=== PATIENT | male | born 1940 | race Caucasian/White ===

== ENCOUNTER 2017-06-08 19:59 | Inpatient (IN) | payer OTHER, MEDICARE ==
[~2017-06-08] VITALS: Ht 182.9 cm; Wt 80.6 kg
[~2017-06-08 19:59] MED LIST: APRESOLINE50 MG PO; CRESTOR40 MG PO; FISH OIL 1,2001 EAC4 PO; Lopressor PO; Nitrostat,NitroQuick SL; Norvasc PO; Oscal 500 w/Vitamin PO; Protonix PO; Theragran PO; Tylenol Regular Stre PO; ZESTRIL40 MG PO
[2017-06-08 20:18] LABS: BASOPHIL (%) 0.9 % (0-1); BASOPHIL COUNT 0.1 K/uL (0-0.1); EOSINOPHIL COUNT 0.1 K/uL (0-0.3); HEMATOCRIT 50.3 % (38.0-50.0); HEMOGLOBIN 17.1 G/DL (12.5-16.6); IMMATURE GRANULOCYTE (%) 0.3 % (0.0-0.7); LYMPHOCYTE (%) 24.3 % (15-42); LYMPHOCYTE COUNT 1.7 K/uL (1.0-2.8); MCH 31.7 PG (29.0-34.0); MCV 93.1 FL (86-99); MONOCYTE (%) 9.1 % (3-12); MONOCYTE COUNT 0.6 K/uL (0-0.8); NEUTROPHIL (%) 64.4 % (45-76); NEUTROPHIL COUNT 4.4 K/uL (1.8-6.4); PLATELET COUNT 212 K/uL (156-360); RBC DIS.WIDTH-CV 14.3 % (11.8-14.6); RBC DIS.WIDTH-SD 49.3 % (39-53); WHITE BLOOD COUNT 6.8 K/uL (4.1-10.2)
[2017-06-08 20:26] LABS: AMYLASE 62 IU/L (1-118); CHLORIDE 103 mEq/L (99-109); POTASSIUM 3.8 mEq/L (3.7-5.4); PTT 27.1 SEC (25-37); SODIUM 140 mEq/L (136-147)
[2017-06-08 20:28] LABS: GLUCOSE 117 mg/dL (70-99)
[2017-06-08 20:31] LABS: SERUM ETHYL ALCOHOL < 10 mg/dL
[2017-06-08 20:32] LABS: CREATININE 1.1 mg/dL (0.6-1.3); GFR ESTIMATE (CALCULATED) > 59 mL/min/ (58.99-99999)
[2017-06-08 20:33] LABS: UREA NITROGEN (BUN) 10 mg/dL (9-23)
[2017-06-08 20:35] LABS: LIPASE 13 U/L (1.0-51.0)
[2017-06-08 20:41] LABS: TROP-I INTERPRETATION INDETERMINATE; TROPONIN-I 0.48 ng/mL (0.0-0.30)
[2017-06-08 21:44] VITALS: BP 129/74
[2017-06-08 21:45] VITALS: BP 129/74
[2017-06-08 22:00] VITALS: BP 120/69
[2017-06-08 23:00] VITALS: BP 141/83
[2017-06-09] VITALS (20 sets, daily range): BP systolic 113–149; BP diastolic 70–87
[2017-06-09 01:00] LABS: TROP-I INTERPRETATION POSITIVE
[2017-06-09 01:18] LABS: TROPONIN-I 69.42 ng/mL (0.0-0.30)
[2017-06-09 04:24] LABS: BASOPHIL (%) 0.5 % (0-1); EOSINOPHIL (%) 1.2 % (0-5); EOSINOPHIL COUNT 0.1 K/uL (0-0.3); HEMATOCRIT 43.3 % (38.0-50.0); IMMATURE GRANULOCYTE (%) 0.3 % (0.0-0.7); LYMPHOCYTE (%) 23.7 % (15-42); LYMPHOCYTE COUNT 1.4 K/uL (1.0-2.8); MCHC 34.2 G/DL (30.0-36.0); MCV 93.5 FL (86-99); MONOCYTE (%) 10.3 % (3-12); MONOCYTE COUNT 0.6 K/uL (0-0.8); NEUTROPHIL COUNT 3.7 K/uL (1.8-6.4); PLATELET COUNT 175 K/uL (156-360); RBC DIS.WIDTH-CV 14.5 % (11.8-14.6); RBC DIS.WIDTH-SD 49.8 % (39-53); RED BLOOD COUNT 4.63 M/uL (4.00-5.50); WHITE BLOOD COUNT 5.8 K/uL (4.1-10.2)
[2017-06-09 04:28] LABS: CHLORIDE 110 mEq/L (99-109); HEMOGLOBIN 14.8 G/DL (12.5-16.6); POTASSIUM 3.6 mEq/L (3.7-5.4); SODIUM 141 mEq/L (136-147)
[2017-06-09 04:30] LABS: GLUCOSE 97 mg/dL (70-99)
[2017-06-09 04:34] LABS: CREATININE 0.9 mg/dL (0.6-1.3); GFR ESTIMATE (CALCULATED) > 59 mL/min/ (58.99-99999)
[2017-06-09 04:35] LABS: UREA NITROGEN (BUN) 10 mg/dL (9-23)
[2017-06-09 04:38] LABS: TROP-I INTERPRETATION POSITIVE
[2017-06-09 05:03] LABS: TROPONIN-I 69.93 ng/mL (0.0-0.30)
[2017-06-09] MEDS ORDERED: TOPROL XL100 MG PO (12:34)
[2017-06-09] MEDS ORDERED: LIPITOR80 MG PO (12:35)
[2017-06-09] MEDS ORDERED: ASPIRIN81 M2 PO (12:36)
[2017-06-09] MEDS ORDERED: AMLODIPINE BESYL5 MG PO (12:38)
[2017-06-09 13:09] LABS: TROP-I INTERPRETATION POSITIVE; TROPONIN-I 30.78 ng/mL (0.0-0.30)
[2017-06-09 18:22] LABS: TROP-I INTERPRETATION POSITIVE
[2017-06-10 03:13] VITALS: BP 130/72
[2017-06-10 07:43] VITALS: BP 158/72
[2017-06-10 11:35] VITALS: BP 136/83
[2017-06-10] MEDS ORDERED: CLOPIDOGREL75 MG PO (14:53)
[2017-06-10 15:41] VITALS: BP 127/72
== END 2017-06-10 17:04 | disposition home or self-care (01) | DRG 246 ==
LOC: EME 19:59 → ENRESERV 20:14 → 4SOUTH 21:05 → 4WEST 21:05 → 2SOUTH 21:05 → 4WEST 21:32 → ENRESERV 06-09 15:35 → 4WEST 06-09 16:24 → ENRESERV 06-09 16:29 → 4SOUTH 06-09 17:52
PROVIDERS: Emergency Medicine; Internal Medicine Cardiovascular Disease
DX: T82.855A Stenosis of coronary artery stent, initial encounter (principal); I21.11 ST elevation (STEMI) myocardial infarction involving right coronary artery; I21.19 ST elevation (STEMI) myocardial infarction involving other coronary artery of inferior wall; I25.10 Atherosclerotic heart disease of native coronary artery without angina pectoris; I25.2 Old myocardial infarction; Z95.5 Presence of coronary angioplasty implant and graft; I10 Essential (primary) hypertension; E78.5 Hyperlipidemia, unspecified; K21.9 Gastro-esophageal reflux disease without esophagitis; Z86.73 Personal history of transient ischemic attack (TIA), and cerebral infarction without residual deficits; Z79.82 Long term (current) use of aspirin
CPT/HCPCS: 80048; 81003; 82150; 83690; 84484; 85025; 85347; 85610; 85730; 86850; 86900; 86901; 87641; 90686; 93005; 93306; 99281; 99285; C1725; C1757; C1760; C1769; C1874; C1887; C1894; G0480; J0461; J1644; J2250; J3010; J7030